=== PATIENT | female | born 1965 | race African-American/Black ===

== ENCOUNTER 2021-07-13 13:28 | Inpatient (IN) | payer MEDICARE, MEDICAID ==
[~2021-07-13] VITALS: Ht 154.9 cm; Wt 42.6 kg
[~2021-07-13 13:28] MED LIST: AMLO10TA4 PO; CARI350T28 PO; CLOP75TA15; DIAZ10TA4 PO; GABA800T97 PO; HYDR-3513 PO; INSASP; INSULIN; OMEP40CA20 PO; QUET100T34 PO; SERT-422; SERT50TA PO; TRIA1CAP35 PO
[2021-07-13 15:41] LABS: BASOPHILS % 1.1 % (0.0-2.0); HEMATOCRIT. 36.3 % (36.0-48.0); HEMOGLOBIN. 12.1 g/dL (12.0-16.0); LYMPHOCYTES % 14.6 % (20.0-50.0); MEAN CORPUSCULAR HEMOGLOBIN 33.7 pg (28.0-32.0); MEAN CORPUSCULAR VOLUME 101.1 fL (81.0-99.0); MEAN PLATELET VOLUME 7.9 fl (7.4-10.4); MONOCYTES % 3.5 % (2.0-8.0); NEUTROPHILS % 80.8 % (40.0-76.0); PLATELET 379 x1000/uL (130-400); RED BLOOD CELL COUNT 3.59 mill/uL (4.2-5.4); RED CELL DISTRIBUTION WIDTH 15.9 % (11.6-14.6)
[2021-07-13 15:45] LABS: CHLORIDE 107 mEq/L (98-107)
[2021-07-13] MEDS ORDERED: AZITHROMYCIN 500MG/250ML 250 ML IV ONE (17:15)
[2021-07-13] MEDS ORDERED: POTASSIUM CHLORIDE 20MEQ TABLET SR PO ONE (17:15)
[2021-07-13] MEDS ORDERED: FUROSEMIDE 20MG TABLET PO ONE (17:15)
[2021-07-13] MEDS ORDERED: MORPHINE SULFATE 2 MG/ML CPJ (NOT FOR IM USE) IV ONE (18:45)
[2021-07-13] MEDS ORDERED: ONDANSETRON HCL 4MG/2ML INJ IV ONE (18:45)
[2021-07-13 20:55] VITALS: BP 130/92
[2021-07-13] MEDS ORDERED: CEFTRIAXONE 1 G PREMIX 50 ML IV SCH (23:00)
[2021-07-13] MEDS ORDERED: HYDROCODONE/ACETAMINOPHEN 5/325MG TABLET PO PRN (23:00)
[2021-07-13] MEDS ORDERED: IPRATROPIUM/ALBUTEROL 0.5-3(2.5)MG/3ML NEB NEB PRN (23:00)
[2021-07-13] MEDS ORDERED: CLONIDINE 0.1MG TABLET PO PRN (23:00)
[2021-07-13] MEDS ORDERED: GUAIFENESIN 200MG/10ML SUGAR FREE UDC PO PRN (23:00)
[2021-07-13] MEDS ORDERED: DOCUSATE SODIUM 100MG CAPSULE PO PRN (23:00)
[2021-07-13] MEDS ORDERED: MAGNESIUM/ALUMINUM HYDROXIDE/SIMETHICONE 30ML UDC PO PRN (23:00)
[2021-07-13] MEDS ORDERED: CEFTRIAXONE 1,000 MG in DEXTROSE 5% WATER 50 ML IV SCH (23:15)
[2021-07-13] MEDS: SODIUM CHLORIDE 0.9% 1,000 ML IV SCH (23:55)
[2021-07-13] MEDS: LORAZEPAM 0.5MG TABLET PO PRN (23:56)
[2021-07-13] MEDS: HYDROCODONE/ACETAMINOPHEN 10/325MG TABLET PO PRN (23:56)
[2021-07-13] MEDS: ONDANSETRON HCL 4MG/2ML INJ IV PRN (23:57)
[2021-07-14] VITALS (8 sets, daily range): BP systolic 109–156; BP diastolic 63–95
[2021-07-14] MEDS ORDERED: DEXTROSE 50% WATER 50ML SYRINGE IV PRN (00:45)
[2021-07-14] MEDS ORDERED: NALOXONE HCL 0.4 MG/ML 1ML VIAL IV PRN (01:00)
[2021-07-14 02:19] LABS: FOLIC ACID (FOLATE) SERUM 7.7 ng/mL (>5.38)
[2021-07-14] MEDS: HYDROCODONE/ACETAMINOPHEN 10/325MG TABLET PO PRN ×4 (06:30→23:31)
[2021-07-14] MEDS: BLOOD SUGAR DIAGNOSTIC STRIP TEST SCH ×4 (07:30→20:22)
[2021-07-14 08:34] LABS: BASOPHILS % 0.5 % (0.0-2.0); EOSINOPHILS % 1.1 % (0.0-5.0); HEMATOCRIT. 28.2 % (36.0-48.0); HEMOGLOBIN. 9.5 g/dL (12.0-16.0); LYMPHOCYTES % 36.9 % (20.0-50.0); MEAN CORPUSCULAR HEMOGLOBIN 33.3 pg (28.0-32.0); MEAN CORPUSCULAR VOLUME 99.1 fL (81.0-99.0); MEAN PLATELET VOLUME 7.6 fl (7.4-10.4); MONOCYTES % 4.3 % (2.0-8.0); NEUTROPHILS % 57.2 % (40.0-76.0); PLATELET 287 x1000/uL (130-400); RED BLOOD CELL COUNT 2.85 mill/uL (4.2-5.4); RED CELL DISTRIBUTION WIDTH 15.7 % (11.6-14.6)
[2021-07-14 09:20] LABS: CHLORIDE 109 mEq/L (98-107)
[2021-07-14 09:26] LABS: CLARITY URINE CLOUDY (CLEAR); COLOR URINE YELLOW (YELLOW); KETONES URINE NEGATIVE (NEGATIVE); LEUKOCYTE ESTERASE URINE NEGATIVE (NEGATIVE); NITRITE URINE NEGATIVE (NEGATIVE); OCCULT BLOOD URINE NEGATIVE (NEGATIVE); PROTEIN URINE 2+ (NEGATIVE); SPECIFIC GRAVITY URINE 1.013 (1.005-1.030); UROBILINOGEN URINE 0.2 E.U./dL (0.2-1.0)
[2021-07-14] MEDS: INSULIN LISPRO 100 UNITS/ML SUBCUT SCH ×4 (09:26→20:22)
[2021-07-14] MEDS ORDERED: MAGNESIUM 4 G PREMIX 100 ML IV NR (09:30)
[2021-07-14 09:32] LABS: LDL CHOLESTEROL 72 mg/dL (5-100)
[2021-07-14 09:33] LABS: CREATINE KINASE 50 IU/L (26-192)
[2021-07-14 09:34] LABS: HDL CHOLESTEROL 41 mg/dL (40-59)
[2021-07-14 09:37] LABS: CREATINE KINASE MB FRACTION 2.4 ng/mL (0.5-3.6)
[2021-07-14 10:09] LABS: *BARBITURATES SCREEN URINE NEGATIVE (NEGATIVE); *BENZODIAZEPINES SCREEN URINE NEGATIVE (NEGATIVE); *COCAINE SCREEN URINE NEGATIVE (NEGATIVE); METHADONE URINE SCREEN NEGATIVE (NEGATIVE); OPIATES URINE SCREEN PRESUMTIVE POSITIVE (NEGATIVE); PHENCYCLIDINE URINE SCREEN NEGATIVE (NEGATIVE)
[2021-07-14 10:10] LABS: *AMPHETAMINES SCREEN URINE NEGATIVE (NEGATIVE); CANNABINOID URINE SCREEN NEGATIVE (NEGATIVE)
[2021-07-14] MEDS ORDERED: POTASSIUM CHLORIDE 20MEQ TABLET SR PO SCH (10:15)
[2021-07-14] MEDS: MORPHINE SULFATE 15MG TABLET SR PO SCH ×2 (10:52→20:20)
[2021-07-14] MEDS ORDERED: METF-414 MT (14:21)
[2021-07-14 17:27] LABS: CREATINE KINASE 50 IU/L (26-192)
[2021-07-14 17:28] LABS: CREATINE KINASE MB FRACTION 2.3 ng/mL (0.5-3.6)
[2021-07-14] MEDS ORDERED: AZITHROMYCIN 500 MG in DEXT 5% WATER 250 ML IV SCH (18:30)
[2021-07-14] MEDS: ONDANSETRON HCL 4MG/2ML INJ IV PRN (18:45)
[2021-07-14] MEDS: SODIUM CHLORIDE 0.9% 1,000 ML IV SCH (23:24)
[2021-07-14] MEDS: LORAZEPAM 0.5MG TABLET PO PRN (23:29)
[2021-07-15] VITALS (11 sets, daily range): BP systolic 125–160; BP diastolic 59–89
[2021-07-15] MEDS: ONDANSETRON HCL 4MG/2ML INJ IV PRN ×2 (02:22→08:21)
[2021-07-15] MEDS: LORAZEPAM 0.5MG TABLET PO PRN (04:42)
[2021-07-15] MEDS: HYDROCODONE/ACETAMINOPHEN 10/325MG TABLET PO PRN ×2 (04:42→11:12)
[2021-07-15 07:41] LABS: T4 FREE 0.18 ng/dL (0.76-1.46)
[2021-07-15] MEDS: INSULIN LISPRO 100 UNITS/ML SUBCUT SCH ×2 (08:00→13:06)
[2021-07-15] MEDS ORDERED: LEVOTHYROXINE SODIUM 25MCG TABLET PO NR (08:15)
[2021-07-15] MEDS: BLOOD SUGAR DIAGNOSTIC STRIP TEST SCH ×2 (08:19→13:00)
[2021-07-15] MEDS: MORPHINE SULFATE 15MG TABLET SR PO SCH (08:20)
[2021-07-15] MEDS ORDERED: LEVO25TA2 MT (11:43)
== END 2021-07-15 17:00 | disposition hospice, home (50) | DRG 637 ==
LOC: ER 13:28 → 5EST 17:26 → ENRESERV 19:58
PROVIDERS: ADMIT Internal Medicine; ATTEND Internal Medicine
DX: E11.65 Type 2 diabetes mellitus with hyperglycemia (principal); J18.9 Pneumonia, unspecified organism; Z68.1 Body mass index [BMI] 19.9 or less, adult; E78.00 Pure hypercholesterolemia, unspecified; I10 Essential (primary) hypertension; M19.90 Unspecified osteoarthritis, unspecified site; E03.9 Hypothyroidism, unspecified; Z66 Do not resuscitate; F32.A Depression, unspecified; D53.9 Nutritional anemia, unspecified; E87.6 Hypokalemia; E83.42 Hypomagnesemia; R62.7 Adult failure to thrive; Z79.890 Hormone replacement therapy; Z79.84 Long term (current) use of oral hypoglycemic drugs; Z79.899 Other long term (current) drug therapy; Z79.891 Long term (current) use of opiate analgesic; Z79.4 Long term (current) use of insulin; Z91.14 Patient's other noncompliance with medication regimen; Z51.5 Encounter for palliative care; Z91.19 Patient's noncompliance with other medical treatment and regimen
CPT/HCPCS: 36415; 71045; 80053; 80061; 80305; 81003; 82550; 82553; 82607; 82746; 82962; 83036; 83735; 83880; 84145; 84439; 84443; 84481; 84484; 85025; 93005; 93306; 99285; J0456; J0696; J1815; J2270; J2405; J3475; J7030; J7060